=== PATIENT | female | born 2000 | race African-American/Black ===

== ENCOUNTER 2022-12-19 10:40 | Emergency (ER) | payer OTHER ==
[~2022-12-19] VITALS: Ht 165.1 cm; Wt 57.1 kg
[2022-12-19 10:41] VITALS: BP 126/62; TEMP 97.5; O2SAT 100
[2022-12-19] MEDS ORDERED: ALBU8.5H INH (11:14)
[2022-12-19 14:26] LABS: URINE PREG TEST NEGATIVE (NEGATIVE)
[2022-12-19 16:14] LABS: GC DNA AMPLIFICATION NEGATIVE (NEGATIVE)
[2022-12-19] MEDS ORDERED: METR-265 PO (16:20)
[2022-12-19] MEDS ORDERED: metroNIDAZOLE (FLAGYL) 500MG TABLET PO ONE (16:25)
[2022-12-21] MEDS ORDERED: NITR1CAP11 PO (07:40)
== END 2022-12-19 16:36 | disposition home or self-care (01) ==
LOC: M ED 10:40
DX: N76.0 Acute vaginitis (principal)